=== PATIENT | male | born 1965 | race Caucasian/White ===

== ENCOUNTER 2022-05-07 22:20 | Emergency (ER) | payer OTHER ==
[2022-05-07] MEDS ORDERED: OXYMETAZOLINE 0.05% NASAL SOLUTION 15 ML BOTTLE NS ONE ×2 (22:28→22:43)
[2022-05-07 22:55] VITALS: BP 143/96; PULSE 97; RESP 18; TEMP 98; BMI 34.4
== END 2022-05-07 23:49 | disposition home or self-care (01) ==
LOC: FER 22:20
DX: R04.0 Epistaxis (principal)
CPT/HCPCS: 99283-25